=== PATIENT | male | born 1995 | race Caucasian/White ===

== ENCOUNTER 2018-07-24 14:44 | Emergency (ER) | payer SELFPAY ==
[~2018-07-24] VITALS: Ht 190.5 cm; Wt 66.2 kg
[2018-07-24 14:50] VITALS: BP 132/65
[2018-07-24] MEDS ORDERED: ONDANSETRON 4 MG TAB.RAPDIS ONE (15:16)
[2018-07-24] MEDS ORDERED: ONDANSETRON 4 MG TAB.RAPDIS SL ONE (15:30)
== END 2018-07-24 15:40 | disposition home or self-care (01) ==
LOC: ER 14:51
DX: R11.2 Nausea with vomiting, unspecified (principal); F12.10 Cannabis abuse, uncomplicated
CPT/HCPCS: 99282; A4606; Q0162; Z7610